=== PATIENT | female | born 1995 | race Caucasian/White ===

== ENCOUNTER 2020-03-26 13:26 | Outpatient (CLI) | payer BC ==
[2020-03-26] MEDS ORDERED: iohexol 300mg/ml 100ml inj. ONE (13:39)
== END 2020-03-26 23:59 | disposition home or self-care (01) ==
LOC: 64 CT 13:26
PROVIDERS: ATTEND Nurse Practitioner Family
DX: K59.09 Other constipation (principal)
CPT/HCPCS: 74178; Q9967